=== PATIENT | female | born 1940 | race Caucasian/White ===

== ENCOUNTER 2017-06-13 10:55 | Emergency (ER) | payer MEDICARE ==
[~2017-06-13] VITALS: Ht 157.5 cm; Wt 63.6 kg
[~2017-06-13 10:55] MED LIST: ASPI-351 PO; ESZO1TAB2 PO; METO25T PO; OXYC-176 PO; [UNRECOGNIZED DRUG - OTHER] PO
[2017-06-13 10:59] VITALS: BP 107/81; PULSE 60; RESP 18; O2SAT 98
--- NOTE | 2017-06-13 11:06 | ED.REPORT ---
HPI-Dizziness / Weakness Date of Service Jun 13, 2017 ED Provider: Dr. Hughes Pt is a 77 y/o female anticoagulated on Warfarin w/ a hx of tachy-alejandra syndrome s/p pacemaker, paroxysmal a-fib, presenting to the ED c/o lightheadedness onset last night. The patient has been working with her doctors regarding her medications recently with her Warfarin dose being changed, her diltiazem being stopped, and Flecainide being started 4 days ago. Last night, she experiencing a 5 min episode of near-syncope with associated nausea. She did have an episode of diarrhea last night which is unusual for her. This morning, she accidentally took an extra dose of Flecainide instead of her Warfarin because the pill bottles got mixed up. This medication mix-up and the lightheadedness prompted a call to her membership sales representative's office today and Dr. Landeros recommended she come to the ED. Pt denies CP, SOB, palpitations, fever, cough, abdominal pain, dysuria, urinary frequency, bloody stools. Brand Mgr: Dr. Zaragoza Nursing Notes Stated Complaint: DIZZY/LIGHT HEADED Chief Complaint: General Complaint Nursing Notes Reviewed: Yes Allergies: Coded Allergies: Sulfa (Sulfonamide Antibiotics) (Verified Allergy, Severe, 07/08/11) UNKNOWN lisinopril (Verified Allergy, Severe, 07/08/11) COUGH Scheduled ([Bezonatate]) 100 MG PO TID As Needed For Cough Aspirin-Expunged Drug, Do Not Renew! (Aspirin-Expunged Drug, Do Not Renew!) 325 Mg Tablet 325 MG PO DAILY Diltiazem ER (Diltiazem ER) 240 Mg Tab.er.24h 240 MG PO DAILY Eszopiclone-Expunged Drug, Do Not Renew! (Lunesta-Expunged Drug, Do Not Renew!) 1 Mg Tablet 1 MG PO HS Metoprolol Tart-Expunged Drug, Do Not Renew! (Metoprolol Tart-Expunged Drug, Do Not Renew!) 25 Mg Tablet 50 MG PO BID Oxycodone/APAP-Expunged Drug, Do Not Renew! (Percocet 5/325-Expunged Drug, Do Not Renew!) 1 Each Tablet 1 TAB PO Q6 As Needed For Pain General Time Seen by MD: 11:06 Chief Complaint Near-fainting Hx Obtained From: Patient Arrived By: Walk-in Onset Occurred: Yesterday Symptom Duration: Since onset Severity: Current: No pain currently Severity: Maximum: No pain Similar Sx Previous: No Past Medical History Past Medical History Tachy alejandra syndrome s/p pacemaker placement Paroxysmal a-fib - on Warfarin Past Surgical History Pacemaker placement Smoking History Never Smoker Social History Alcohol Use: 1-3 per day Drug Use: Denies drug use Other Social History: Ambulatory Status Independent Review of Systems Constitutional: Denies: Chills, Fever Respiratory: Denies: Non-productive cough, Shortness of breath Cardiovascular: Denies: Chest pain, Palpitations GI: Reports: Diarrhea, Nausea, Denies: Abdominal pain, Bloody/tarry stool, Melena, Vomiting Hematologic: Denies Bleeding Skin: Denies Bruising Neurologic: Reports: Lightheaded, Denies: Change LOC, Headache, Spinning sensation Psychiatric: Denies: Change mental status Complete sys rev & neg: except as marked. Female: Denies: Dysuria, Urinary frequency Physical Exam Initial Vital Signs Vital Signs (First) Date Time Temp Pulse Resp B/P Pulse Ox O2 Delivery O2 Flow Rate FiO2 06/13/17 10:59 36.9 60 18 107/81 98 Room Air Initial VS: Reviewed, Vital signs normal ENT: Mucous membranes moist, Conjunctiva normal Neck: Full range of motion Abdomen / GI: Soft, Non-tender Extremities: Vascular intact, Neuro intact, No swelling Skin: Warm, Dry, No cyanosis Psychiatric: Mood/affect normal, Behavior normal, Normal thought content General/Constitutional: Awake, Alert, No acute distress, Well appearing, Cooperative, Not toxic appearing Head / Eyes: Atraumatic, Normocephalic, PERRL Respiratory / Chest: Breath sounds NL, Breath sounds = bilat, No respiratory distress, No rales, No rhonchi, No wheezing Cardiovascular: Heart rate NL, Regular rhythm, Heart sounds NL, No gallop, No murmurs, No rubs Neurologic: Oriented X3, Speech NL, No motor deficits, No sensory deficits, CN II - XII intact, Cerebellar NL, Memory NL Interpretation & Diagnostics Lab Results Interpretation Result Diagram: 06/13/17 1217 06/13/17 1217 Test 06/13/17 12:17 White Blood Count 10.6th/mm3 (3.8-10.1) Red Blood Count 5.10mil/mm3 (3.90-5.20) Hemoglobin 15.7g/dL (12.0-15.6) Hematocrit 43.3% (35.0-46.0) Mean Corpuscular Volume 84.9fL (81-100) Mean Corpuscular Hemoglobin 30.8pg (27.0-35.0) Mean Corpuscular Hemoglobin Concent 36.3% (32.0-37.0) Red Cell Distribution Width 12.1% (12.3-15.4) Platelet Count 323bil/L (150-400) Neutrophils (%) (Auto) 77.1% (40-74) Lymphocytes (%) (Auto) 12.8% (14-46) Monocytes (%) (Auto) 8.2% (4-12) Eosinophils (%) (Auto) 1.1% (0-5) Basophils (%) (Auto) 0.5% (0-3) Prothrombin Time 14.9sec (8.1-12.5) Prothromb Time International Ratio 1.38ratio Sodium Level 134mEq/L (134-144) Potassium Level 4.0mEq/L (3.5-5.2) Chloride Level 95mEq/L (97-108) Carbon Dioxide Level 22mmol/L (18-29) Blood Urea Nitrogen 21mg/dL (8-27) Creatinine 0.86mg/dL (0.57-1.00) Estimat Glomerular Filtration Rate 92mL/min (>59) Glucose Level 100mg/dL (60-99) Calcium Level 9.3mg/dL (8.5-10.1) Magnesium Level 2.1mg/dL (1.6-2.6) Total Bilirubin 0.5mg/dL (0.0-1.2) Aspartate Amino Transf (AST/SGOT) 36U/L (0-50) Alanine Aminotransferase (ALT/SGPT) 34U/L (0-32) Alkaline Phosphatase 56U/L (25-165) Troponin T < 0.010ug/L (0.0-0.011) Total Protein 7.3g/dL (6.4-8.4) Albumin 4.5g/dL (3.4-5.0) Hold Mayer Top Tube Received (Received) ECG Interpretation ECG Interpretation: Fully atrially-paced complexes rate approximately 60 No PVCs Time: 11:35 Interpreted by: ED physician Normal ECG Interpretation: No acute ischemic changes Re-Eval/Medical Decision Med Decision/Clinical Course Dizziness thought to be related to recent medication changes. Seen by cardiology. Medication adjustments have been made. Recommend close outpatient follow-up and return precautions. Re-Evaluation/Progress #1: Time of Eval: 11:41 Re-Evaluation/Progress Note: Pt rechecked. I discussed the consult with the cardiolgist and workup but she is still refusing chest xray. Re-Evaluation/Progress #2: Time of Eval: 13:25 Re-Evaluation/Progress Note: Pt rechecked. Discussed lab findings thus far. The patient is now saying that it is ridiculous that she is here and has been wanting to leave. Re-Evaluation/Progress #3: Time of Eval: 14:02 Re-Evaluation/Progress Note: Pt rechecked. Discussed medication changes. Informed pt of plan for discharge. Pt understands and agrees with plan for discharge. F/U instructions and RTER warnings given. All questions addressed. Consultation #1: Referral / Consult Name: Germania Landeros MD Consulted With: Cardiology Call Returned at: 11:39 Materials Manager: Agrees with eval, Agrees with plan Note: Agrees with plan for cardiac workup. Consultation #2: Call Returned at: 12:45 Materials Manager: Agrees with eval, Agrees with plan Note: Pacemaker interrogation is negative for any abnormal rhythms. Consultation #3: Referral / Consult Name: Germania Landeros MD Call Returned at: 13:29 Materials Manager: Will see patient, Agrees with eval, Agrees with plan Note: Discussed findings. Will come to the ED to see the patient. After evaluation recommends dilt 240 mg daily. Metoprolol 50 mg BID. Steop flecainide. F/u with Nik in 1 week. Counseled Regarding: Diagnosis, Lab results, Need for follow-up, When/why to return to ED Patient Discharge & Departure Impression: Primary Impression: Near syncope Additional Impression: Subtherapeutic international normalized ratio (INR) Disposition: Home Discharge Condition All VS Reviewed: Yes Condition: Stable Additional Instructions: Resume diltiazem at 240 mg daily. Continue metoprolol 50 mg twice a day. Discontinue flecainide. Follow up with Dr. Zaragoza in approximately 1 week. Return to the ER or call Dr. Zaragoza as needed for recurrent symptoms of dizziness or passing out. Referrals: Yajaira Anderson MD (PCP) Brandee Zaragoza MD Scribe Attestation Portions of this note were transcribed by Dayne Bailey. I, Dr. Hughes personally performed the history, physical exam and medical decision-making; I reviewed and confirmed the accuracy of the information in the transcribed note. Brandee Zaragoza MD; Yajaira Anderson MD, Timothy S DO Jun 13, 2017 11:06 DAYNE BAILEY Jun 13, 2017 11:19
[2017-06-13 11:23] VITALS: BP 165/84; PULSE 63; RESP 20; O2SAT 96
[2017-06-13 11:49] VITALS: BP_SYST 163; BP_SYST 173; BP_DIAS 101; BP_DIAS 74; PULSE 61; PULSE 63
[2017-06-13 11:50] VITALS: BP 161/81; PULSE 65
[2017-06-13 12:54] LABS: BASOPHILS % (AUTO) 0.5 % (0-3); EOSINOPHILS % (AUTO) 1.1 % (0-5); MONOCYTES % (AUTO) 8.2 % (4-12); Mean Corpuscular Hemoglobin 30.8 pg (27.0-35.0); Mean Corpuscular Volume 84.9 fL (81-100); NEUTROPHILS % (AUTO) 77.1 % (40-74); Platelet Count 323 bil/L (150-400)
[2017-06-13 12:59] LABS: INR 1.38 ratio
[2017-06-13 13:12] LABS: TROPONIN T < 0.010 ug/L (0.0-0.011)
[2017-06-13 13:20] LABS: Magnesium 2.1 mg/dL (1.6-2.6)
[2017-06-13] MEDS ORDERED: DILT240T10 PO (14:01)
--- NOTE | 2017-06-13 14:46 | CONS ---
[address] [address] CONSULTATION REPORT PATIENT: ELIJAH CORDON : 1940 MR#: [id number] ADMIT: 06/13/2017 JOB ID: [id number] DATE OF SERVICE: 06/13/2017 REASON FOR CARDIOLOGY CONSULT: For the evaluation of dizziness, fatigue. CHIEF COMPLAINT: Dizziness, fatigue, one episode of diarrhea. PRESENT HISTORY: This 77-year-old, pleasant female, who sees Dr. Zaragoza, who has a history of paroxysmal AFib with tachybrady syndrome, status post [employer] dual-chamber permanent pacemaker insertion in [address] Judge, essential hypertension, came to the ED because of above-mentioned chief complaint. I reviewed her recent office visit note by Dr. Zaragoza as well as took history from the patient and reviewed old records. She was seen by Dr. Zaragoza on June 09, 2017. On pacemaker interrogation, AFib burden was about 6.7%. When she gets AFib she feels dyspnea on exertion as well as palpitation and fatigue. Hence, it was decided to use antiarrhythmic medications. The patient was started on flecainide 50 mg twice a day. She used to take diltiazem 240 mg daily which was discontinued and metoprolol tartrate was increased to 50 mg twice a day from 25 mg twice a day dose. According to the patient, she took 1st dose of flecainide Thursday morning. Yesterday evening she was watching TV and she fell into sleep. Then, she woke up. Then, she went to the 2nd floor after climbing 14 steps. She became very lightheaded. She felt that she is going to pass out. She felt nauseated as well. She did not feel palpitations or shortness of breath or chest pain or double vision or headache or stroke-like symptoms. She laid down and felt better in 5-10 minutes. This morning around 4:00 she woke up. She has watery diarrhea without any abdominal pain or vomiting or fever, chills. There was no blood. There was no mucus. It was not very foul smelling. No recurrence of diarrhea since then. Denies any eating outside yesterday. She took another dose of flecainide this morning and got worried about. She discussed with me. She was advised to be evaluated in the hospital. At present, she is sitting in the ED. She is feeling better. No recurrence of dizziness. No recurrence of diarrhea. No abdominal pain or vomiting, nausea or chest pain or shortness of breath. She has been on warfarin for last four weeks. According to the patient, she decided to be started on low dose. It has not been therapeutic. Her last 2D echo was in June 2011. At that time LV ejection fraction was 60% to 65% with normal right ventricular function, mild MR, mild AR, mild TR. Dr. Zaragoza advised her to have a stress echo but she has not done yet. PAST MEDICAL HISTORY: History of tachybrady syndrome with paroxysmal AFib, status post [employer] dual-chamber pacemaker insertion June 2011, hypertension, fatigue. PAST SURGICAL HISTORY: As stated above. ALLERGIES: The patient is allergic to: 1. SULFA. 2. LISINOPRIL. MEDICATION AT HOME: At present, she was takin. Flecainide 50 mg twice a day. 2. Metoprolol tartrate 50 mg twice a day. 3. Spironolactone and hydrochlorothiazide combination 25 mg tablet each half tablet daily. 4. Warfarin. FAMILY HISTORY: Noncontributory. SOCIAL HISTORY: Denies any tobacco abuse, alcohol abuse. REVIEW OF SYSTEMS: Ten point review of systems were obtained and negative except as stated above. PHYSICAL EXAMINATION: Blood pressure 161/81, heart rate 65, respiratory rate 18-20, oxygen saturation room air 96%. Head: No significant anemia, jaundice. Neck: No apparent JVP or carotid bruit. Chest: No obvious crepitation or rhonchi. CVS: S1, S2 normal. No S3, no S4. I do not appreciate any significant murmur. Abdomen: No obvious pulsatile mass or hepatosplenomegaly. Extremities: Bilateral pedal edema. Vascular: No evidence of critical limb ischemia. BOARD MACHINE SET UP OPERATOR: Alert, oriented to time, place, and person. No obvious motor or sensory deficit. EKG today revealed A-paced and ventricular sensed rhythm. QRS duration 139 msec. I do not see any significant prolongation of QTc. There were some nonspecific ST-T changes. LABORATORIES: WBC 10.6, hemoglobin 15.7, platelets 323, polymorphs 77.1. INR 1.38. Sodium 134, potassium 4.0, BUN 21, creatinine 0.86. Magnesium 2.1. AST 36, ALT 34, troponin T less than 0.010. ASSESSMENT AND PLAN: Episode of dizziness, fatigue with underlying paroxysmal atrial fibrillation, tachycardia/bradycardia syndrome, status post [employer] dual-chamber pacemaker in June 2011, essential hypertension, one episode of diarrhea. Clinically, she appears compensated. At present, she is feeling better. No worsening deafness or tinnitus or vertigo-like symptoms. Clinically, no nystagmus. No stroke-like symptoms. ED physician, Dr. Red Hughes told me that her pacemaker was interrogated in the ED and [facility] x ray electronics wiring technician told them that there was no significant abnormality explaining above-mentioned symptoms. Her pacemaker is functioning okay. On surface EKG, there is no significant widening of the QRS complex or QTc prolongation. She has A-paced and ventricular sensed rhythm. Her troponin normal. She was started on flecainide 50 mg twice a day on June 09, 2017, and 1st dose she took on June 10 morning. Flecainide can cause side effects in the form of dizziness, fatigue as well. At present, the patient decided to discontinue flecainide. Advised patient to go back to Cardizem 240 mg and continue metoprolol tartrate 50 mg twice a day. According to the patient, when she was on Cardizem her blood pressure was better controlled. We discussed about other antiarrhythmic options including sotalol which will need hospitalization. At present, she wants to go home. She will talk to Dr. Zaragoza Thursday after long weekend and we will discuss other options. Her INR is subtherapeutic. Discussed with the patient about new oral anticoagulants as well as about Lovenox until INR therapeutic. However, she has her own ideas about taking medications. She wants it to build up slowly. She understands the risk of stroke. Discussed the case with GI physician who will discharge her from the ED. Thanks for the cardiology consult. Total time spent today including reviewing her previous records, having discussion with the ED physician as well, about 80 minutes.
[2017-06-13 15:00] VITALS: BP 169/101; PULSE 65; RESP 20; O2SAT 96
== END 2017-06-13 15:01 | disposition home or self-care (01) ==
LOC: SED 10:55
DX: R55 Syncope and collapse (principal); R79.1 Abnormal coagulation profile; R42 Dizziness and giddiness; I48.0 Paroxysmal atrial fibrillation; R11.0 Nausea; Z95.0 Presence of cardiac pacemaker; Z79.01 Long term (current) use of anticoagulants; Z88.2 Allergy status to sulfonamides; Z88.8 Allergy status to other drugs, medicaments and biological substances